=== PATIENT | female | born 1935 | race Caucasian/White ===

== ENCOUNTER 2024-08-02 15:10 | Emergency (ER) | payer OTHER ==
[~2024-08-02] VITALS: Ht 167.6 cm; Wt 87.8 kg
[2024-08-02 15:11] VITALS: O2SAT 98
[2024-08-02 16:09] LABS: BASOPHILS % 0.5 % (0.0-2.0); DIFFERENTIAL COMMENT 0; EOSINOPHILS % 1.1 % (0.0-5.0); HEMOGLOBIN. 13.8 g/dL (12.0-16.0); LYMPHOCYTES % 21.7 % (20.0-50.0); MEAN CORPUSCULAR HEMOGLOBIN 29.8 pg (28.0-32.0); MEAN CORPUSCULAR HGB CONC 33.5 g/dL (31.0-37.0); MEAN CORPUSCULAR VOLUME 88.8 fL (81.0-99.0); MEAN PLATELET VOLUME 10.7 fl (7.4-10.4); MONOCYTES % 12.4 % (2.0-8.0); NEUTROPHILS % 64.3 % (40.0-76.0); PLATELET 168 x1000/uL (130-400); RED BLOOD CELL COUNT 4.62 mill/uL (4.2-5.4); WHITE BLOOD COUNT 6.4 x1000/uL (4.5-11.0)
[2024-08-02 16:12] LABS: CHLORIDE 99 mEq/L (98-107); POTASSIUM 3.2 mEq/L (3.5-5.1); SODIUM 137 mEq/L (136-145)
[2024-08-02 16:13] LABS: CARBON DIOXIDE 26 mEq/L (21-32)
[2024-08-02 16:14] LABS: CALCIUM 9.4 mg/dL (8.7-10.4); INR 1.1; PROTHROMBIN TIME 11.4 sec (9.6-11.0)
[2024-08-02 16:18] LABS: CREATININE 0.8 mg/dL (0.6-1.0); GLUCOSE 126 mg/dL (70-105); UREA NITROGEN BLOOD 14 mg/dL (9-23)
[2024-08-02 16:19] LABS: TROPONIN I HIGH SENSITIVITY 24 ng/L (3.0-34)
[2024-08-02] MEDS: POTASSIUM CHLORIDE 20MEQ/PACKET PO ONE (17:12)
[2024-08-02 18:15] VITALS: BP 116/86; PULSE 96; RESP 14; TEMP 37; O2SAT 100
[2024-08-03] MEDS ORDERED: IOHEXOL-350 100 ML BOTTLE ONE (07:03)
== END 2024-08-02 18:24 | disposition short-term general hospital (02) ==
LOC: ER 15:10
DX: I63.9 Cerebral infarction, unspecified (principal); I11.0 Hypertensive heart disease with heart failure; I50.9 Heart failure, unspecified; E11.9 Type 2 diabetes mellitus without complications
CPT/HCPCS: 99291; 70496; 80048; 85025; 85610; 84484; 36415; 70498; 93005; 70450; Q9967